=== PATIENT | female | born 1995 | race Caucasian/White ===

== ENCOUNTER 2018-05-30 20:52 | Emergency (ER) | payer SELFPAY ==
[~2018-05-30] VITALS: Ht 167.6 cm; Wt 65.0 kg
[2018-05-30 20:57] VITALS: BP 110/62
[2018-05-30] MEDS ORDERED: ADDERALL20 MG PO (21:09)
[2018-05-30] MEDS ORDERED: AMOXICILLIN 50500 MG PO (22:20)
[2018-05-30 22:32] VITALS: PULSE 91; TEMP 101.5
== END 2018-05-30 22:35 | disposition home or self-care (01) ==
LOC: COL.ER 20:52
DX: J02.0 Streptococcal pharyngitis (principal); F90.9 Attention-deficit hyperactivity disorder, unspecified type